=== PATIENT | female | born 1960 | race Caucasian/White ===

== ENCOUNTER 2023-06-02 10:33 | Outpatient (CLI) | payer OTHER, SELFPAY | END 2023-06-02 10:34 | disposition home or self-care (01) | LOC: NFLDREF 06-12 15:02 | PROVIDERS: PCP Family Medicine; Referring Provider Family Medicine; Visit Provider Family Medicine | DX: R10.9 Unspecified abdominal pain (principal) | CPT/HCPCS: 81001; 87086 ==

== ENCOUNTER 2023-06-20 11:34 | Outpatient (CLI) | payer OTHER, SELFPAY ==
--- NOTE | 2023-06-20 13:00 | W.ANESCHARGE ---
Anesthesia Charges Start Date/Time Anesthesia Start Date: 06/20/23 Anesthesia Start Time: 12:39 Stop Date/Time Anesthesia Stop Date: 06/20/23 Anesthesia Stop Time: 13:06
--- NOTE | 2023-06-20 13:07 | W.ANESCHARGE ---
Anesthesia Charges Start Date/Time Anesthesia Start Date: 06/20/23 Anesthesia Start Time: 12:39 Stop Date/Time Anesthesia Stop Date: 06/20/23 Anesthesia Stop Time: 13:06
== END 2023-06-20 11:35 | disposition home or self-care (01) ==
LOC: OP CLINIC 11:35
PROVIDERS: PCP Family Medicine; Visit Provider Internal Medicine
DX: Z12.11 Encounter for screening for malignant neoplasm of colon (principal); K63.5 Polyp of colon; K64.8 Other hemorrhoids; K62.1 Rectal polyp
CPT/HCPCS: 00811; 45380; 88305; J2704

== ENCOUNTER 2024-03-04 09:32 | Outpatient (CLI) | payer OTHER, SELFPAY | END 2024-03-04 09:33 | disposition home or self-care (01) | PROVIDERS: PCP Family Medicine; Visit Provider Family Medicine | DX: E78.2 Mixed hyperlipidemia (principal) | CPT/HCPCS: 80048; 80061 ==

== ENCOUNTER 2025-03-11 08:50 | Outpatient (CLI) | payer MEDICARE, BC, SELFPAY | END 2025-03-11 08:51 | disposition home or self-care (01) | PROVIDERS: PCP Family Medicine; Visit Provider Family Medicine | DX: E78.5 Hyperlipidemia, unspecified (principal); I10 Essential (primary) hypertension; Z13.9 Encounter for screening, unspecified | CPT/HCPCS: 80048; 80061; 82533; 85025 ==

== ENCOUNTER 2025-03-21 12:40 | Outpatient (CLI) | payer MEDICARE, BC, SELFPAY ==
--- NOTE | 2025-03-21 13:00 | CRLHL7_ITS ---
For Patients: As a result of the Century Cures Act, medical imaging exams and procedure reports are released immediately into your electronic medical record. You may view this report before your referring provider. If you have questions, please contact your health care provider. INDICATION: Lung cancer screening. Smoking history. TECHNIQUE: CT chest without IV contrast, low dose protocol. COMPARISON: None available. FINDINGS: Pulmonary Nodules: Partially calcified 0.4 cm pulmonary nodule in the right upper lobe (series 3, image 22). Several additional scattered subcentimeter calcified granulomas are noted. Other Pulmonary Findings: No focal consolidation. Nonpulmonary Findings (This low dose chest CT was performed for lung cancer screening, and is not optimized for evaluation of other thoracic abnormalities). Heart and vasculature: No cardiomegaly, no pericardial effusion. Atherosclerotic coronary artery calcifications. Thyroid and lower neck: No suspicious thyroid nodule. Mediastinum/david: No lymphadenopathy. Chest wall: No axillary lymphadenopathy. Upper abdomen: No acute abnormality. Bones: Multilevel degenerative changes of the spine. No suspicious/aggressive focal osseous lesion. IMPRESSION: 1. Partially calcified 0.4 cm pulmonary nodule in the right upper lobe. Lung-RADS Category: 2. Recommendation: Continued follow up, if eligible, with 12-month screening Low Dose Chest CT. 2. Additional scattered punctate calcified granulomas. Please note that all CT scans at this facility use dose modulation, iterative reconstruction, and/or weight-based dosing when appropriate to reduce radiation dose to as low as reasonably achievable. Dictated by Claudia Harrison MD @ 03/22/2025 8:41:00 PM (Electronically Signed)
== END 2025-03-21 12:41 | disposition home or self-care (01) ==
LOC: CT 12:46
PROVIDERS: PCP Family Medicine; Visit Provider Family Medicine
DX: Z12.2 Encounter for screening for malignant neoplasm of respiratory organs (principal); R91.8 Other nonspecific abnormal finding of lung field; F17.210 Nicotine dependence, cigarettes, uncomplicated
CPT/HCPCS: 71271